=== PATIENT | female | born 1995 | race Two or more races ===

== ENCOUNTER → 2018-03-08 14:53 | Outpatient (CLI) | payer SELFPAY ==
[2018-03-12 10:29] LABS: HPV Reflexed? NOT INDICATED
== END ==
PROVIDERS: Visit Provider Obstetrics & Gynecology
DX: Z01.419 Encounter for gynecological examination (general) (routine) without abnormal findings (principal)
CPT/HCPCS: 88175; G0145

== ENCOUNTER → 2018-06-14 13:30 | Outpatient (CLI) | payer SELFPAY | PROVIDERS: Visit Provider Obstetrics & Gynecology | DX: N39.0 Urinary tract infection, site not specified (principal) | CPT/HCPCS: 87086; 87088 ==

== ENCOUNTER → 2019-12-08 09:53 | Outpatient (CLI) | payer SELFPAY ==
[2019-12-08 10:48] LABS: Glucose 75GTT - Fasting 94 mg/dL (70-99)
[2019-12-08 10:59] LABS: Insulin 75GTT - Fasting 22.8 mU/L (2.6-37.6)
[2019-12-08 11:12] LABS: Glucose 75GTT - 30 minutes 122 mg/dL (100-160)
[2019-12-08 11:21] LABS: Insulin 75GTT - 30 MIN 111.3 mU/L (Not Estab.)
[2019-12-08 12:03] LABS: Glucose 75GTT - 60 minutes 120 mg/dL (100-160)
[2019-12-08 12:47] LABS: Insulin 75GTT - 60 min 105.3 mU/L (Not Estab)
[2019-12-08 12:53] LABS: Glucose 75GTT - 120 minutes 107 mg/dL (70-140)
[2019-12-08 12:55] LABS: Insulin 75GTT - 120 min 77.5 mU/L (Not Estab.)
== END ==
PROVIDERS: Referring Provider Obstetrics & Gynecology; Visit Provider Obstetrics & Gynecology
DX: Z13.1 Encounter for screening for diabetes mellitus (principal); E28.9 Ovarian dysfunction, unspecified; R63.5 Abnormal weight gain; Z68.35 Body mass index [BMI] 35.0-35.9, adult
CPT/HCPCS: 36415; 82951; 82952; 83525

== ENCOUNTER → 2020-01-03 08:46 | Outpatient (CLI) | payer SELFPAY ==
[2020-01-03 12:04] LABS: Hematocrit 40.9 % (37-47); Hemoglobin 12.6 g/dL (12.0-15.0); Mean Corp Hgb Conc 30.8 g/dL (32-36); Mean Corpuscular Hgb 26.3 pg (27.0-32.0); Mean Corpuscular Volume 85.4 fL (81-99); Mean Platelet Vol. 9.3 fl (6.2-12.0); Platelet Count 324 K/mm3 (150-450); RBC Distribution Width CV 13.3 % (11.6-14.6); RBC Distribution Width SD 41.4 fl (35.1-43.9); Red Blood Count 4.79 M/mm3 (4.2-5.4)
[2020-01-03 12:20] LABS: T3 Total - Triiodothyronine 1.36 ng/mL (0.6-1.81); Vitamin D,25 Hydroxy 16.8 ng/mL
[2020-01-03 14:37] LABS: AST(SGOT) 13 U/L (15-37); Alanine Aminotransfer ALT/SGPT 24 U/L (13-56); Albumin, Serum 3.7 g/dL (3.2-5.0); Alkaline Phosphatase 79 U/L (45-117); Bilirubin, Direct 0.07 mg/dL (0.00-0.30); Follicle Stimulating Hormone 4.8 mIU/mL; Free T3 2.7 pg/mL (2.18-3.98); Globulin 3.6 g/dL (2.2-4.2); Prolactin 7.4 ng/mL; Protein, Total 7.3 g/dL (6.4-8.2); T4 Free Direct 0.95 ng/dL (0.76-1.46); Thyroid Stim Hormone (TSH) 3.07 uIU/mL (0.358-3.74)
[2020-01-04 09:36] LABS: Thyroid Peroxidase AB 9 IU/mL (0-34)
[2020-01-05 18:55] LABS: 17-Hydroxyprogesterone 22 ng/dL (.)
== END ==
PROVIDERS: Visit Provider Obstetrics & Gynecology
DX: E03.9 Hypothyroidism, unspecified (principal); N92.6 Irregular menstruation, unspecified
CPT/HCPCS: 36415; 80076; 82306; 82533; 82627; 82670; 83001; 83498; 84146; 84270; 84403; 84439; 84443; 84480; 84481; 85027; 86376; 82626